=== PATIENT | male | born 1975 | race Caucasian/White ===

== ENCOUNTER 2023-02-16 08:36 | Outpatient (RCR) | payer BC, SELFPAY ==
[2023-02-16 08:57] LABS: Basophils Absolute Auto 0.02 K/uL (0.00-0.30); Basophils Percent Auto 0.3 % (0.0-3.0); Eosinophils Absolute Auto 0.26 K/uL (0.00-0.50); Eosinophils Percent Auto 4.2 % (0.0-7.0); Hematocrit 43.8 % (37.0-53.0); Lymphocytes Absolute Auto 1.42 K/uL (0.90-2.90); Lymphocytes Percent Auto 22.8 % (20-44); Mean Corpuscular HGB Conc 34 gm/dL (32-36); Mean Corpuscular Hemoglobin 31 pg (26-34); Mean Corpuscular Volume 90 fL (80-100); Monocytes Percent Auto 8.2 % (0.0-11.0); Neutrophils Absolute Auto 4.02 K/uL (1.7-7.0); Neutrophils Percent Auto 64.5 % (42.0-72.0); Platelet Count* 210 K/uL (140-440); RDW Coefficient of Variation % 12.3 % (11.5-15.5); Red Blood Count 4.87 m/uL (4.30-5.90); White Blood Count* 6.23 K/uL (4.50-11.00)
[2023-02-16 09:16] LABS: Albumin* 4.3 g/dL (3.3-5.0)
[2023-02-16 09:17] LABS: Chloride* 104 mmol/L (96-114); Potassium* 3.6 mmol/L (3.6-5.1); Slide Review Reflex No; Sodium* 137 mmol/L (135-149)
[2023-02-16 09:19] LABS: Anion Gap 7 mEq/L (7-15); Aspartate Amino Transferase* 66 U/L (12-35); Bilirubin Total* 0.7 mg/dL (0.1-1.5); Carbon Dioxide* 26 mmol/L (20-32); Creatinine* 0.9 mg/dL (0.5-1.5); Estimated Glomerular Filt Rate 107 ml/min
[2023-02-16 09:20] LABS: Alanine Aminotransferase* 91 U/L (4-50); Alkaline Phosphatase* 59 U/L (40-150); Blood Urea Nitrogen* 17 mg/dL (5-24); Glucose* 166 mg/dL (60-115); Total Protein* 7.3 g/dL (6.0-8.3)
== END 2023-08-15 23:59 | disposition home or self-care (01) ==
LOC: CCIC 08:36
PROVIDERS: PCP Family Medicine; Referring Provider Family Medicine; Visit Provider Clinical Nurse Specialist
DX: C86.3 Subcutaneous panniculitis-like T-cell lymphoma (principal)
CPT/HCPCS: 36415; 80053; 85025

== ENCOUNTER 2023-03-21 14:09 | Outpatient (CLI) | payer BC, SELFPAY | END 2023-03-21 14:10 | disposition home or self-care (01) | PROVIDERS: PCP Family Medicine; Visit Provider Internal Medicine | DX: R79.89 Other specified abnormal findings of blood chemistry (principal) | CPT/HCPCS: 80053; 80061; 82306 ==

== ENCOUNTER 2025-01-07 11:27 | Outpatient (CLI) | payer BC, SELFPAY ==
--- NOTE | 2025-01-13 12:18 | W.PM.SLEEP ---
Sleep Study Details Details Interpreting Provider: Vicky Date of Sleep Study: 01/07/25 Sleep Study Details: STUDY TYPE:? home unattended ? BMI:? 27.89 ORDERING PROVIDER:? Vicky INDICATION:? concern for sleep apnea ? SLEEP SUMMARY:? 405 minutes monitored RESPIRATORY SUMMARY:? AHI per rule 1A 9.5, per CMS guideline 4.1 Low oxygen 90 Snoring 100% PERIODIC LIMB MOVEMENTS OF SLEEP:? not recorded CARDIAC:? range 54-103, mean 64.6 beats per minute IMPRESSION:? mild obstructive sleep apnea RECOMMENDATION: treatment options include CPAP, dental appliance and/or airway expansion surgery.
== END 2025-01-07 11:28 | disposition home or self-care (01) ==
LOC: SLEEP 11:28
PROVIDERS: PCP Family Medicine; Visit Provider Otolaryngology
DX: G47.33 Obstructive sleep apnea (adult) (pediatric) (principal)
CPT/HCPCS: 95806

== ENCOUNTER 2025-03-11 14:29 | Outpatient (CLI) | payer BC, SELFPAY | END 2025-03-11 14:30 | disposition home or self-care (01) | PROVIDERS: PCP Family Medicine; Visit Provider Family Medicine | DX: Z01.818 Encounter for other preprocedural examination (principal); R79.89 Other specified abnormal findings of blood chemistry | CPT/HCPCS: 80048; 80076 ==

== ENCOUNTER 2025-03-27 09:27 | Day surgery (SDC) | payer BC, SELFPAY ==
[2025-03-27] VITALS (15 sets, daily range): BP systolic 115–154; BP diastolic 77–94; PULSE 58–83; RESP 16–20; TEMP 36.1–36.7; O2SAT 95–99; BMI 28.1
[2025-03-27] MEDS: OXYMETAZOLINE 0.05% NASAL SPRAY 2 SPRAY NOSTRIL-B (09:56)
[2025-03-27] MEDS: SODIUM CHLORIDE 0.9 % (FLUSH) 10 ML SYRINGE IVF (10:11)
[2025-03-27] MEDS: LACTATED RINGERS 1000 ML 1,000 ML 100 ML IV (10:11)
[2025-03-27] MEDS: MUPIROCIN 1 GM PACKET 1 APPLIC TOPICAL (11:22)
[2025-03-27] MEDS: BUPIVACAINE 0.5%/EPINEPHRINE 0.9 MG (30.9 ML) INJECTION (11:25)
[2025-03-27] MEDS: AYR SALINE NASAL GEL 1 APPLIC NOSTRIL-B (11:28)
--- NOTE | 2025-03-27 11:58 | P.ENTPROC_ITS ---
Procedure Note Date of procedure: 03/27/25 Procedure: Preop diagnosis history of lymphoma, abnormal appearance left tonsil superior pole, deviated septum, nasal obstruction, left middle and bilateral inferior turbinate hypertrophy Postop same Procedure nasal septoplasty, submucous partial resection inferior turbinates bilateral, partial resection left middle turbinate, left tonsil biopsy Under general trach anesthesia patient was prepped and draped usual fashion. A McIvor mouth gag was inserted the tongue retracted forward. There is an exophytic portion of his left tonsil I went about 5 mm deep to that with a needlepoint cautery and resected this and sent for pathology. Bleeding was controlled with cautery. After regarding gloving attention was turned the nose. The nose was decongested and and then injected. A right hemitransfixion incision was made. Bilateral anterior and posterior tunnels were created. A vertical incision was made through the cartilage anterior to the bone in the posterior bony deflection was resected. There is a left premaxillary wing deformity that was infractured this allowed the septum to return to midline. Two pieces of bone were trimmed returns intraseptal space the hemitransfixion closed with 2 fast-absorbing Vicryl 4-0. A stab incision was made in the anterior of the right inferior turbinate a tunnel created with a Kimble dissector. The blank bone was outfractured a conservative anterior submucous resection performed. The Coblation Wand was used for hemostasis and to cauterize intramurally along the inferior 10%. This was repeated on the left side in identical fashion. The left middle turbinate was medialized and then crushed with the [place] Tract forceps. Silastic stents were secured with 3-0 nylon and Merocel packing placed. The patient procedure well was taken recovery in satisfactory condition. Note that there were 2 Merocel packs on the left and 1 on the right. There is a small anterior pack left and then a longer pack on the left as well and a single long pack on the right. Blood loss 30 mL Surgeon: Clifton Perry MD
--- NOTE | 2025-03-27 12:07 | P.ANES_ITS ---
Anesthesia Charges Start Date/Time Anesthesia Start Date: 03/27/25 Anesthesia Start Time: 11:04 Stop Date/Time Anesthesia Stop Date: 03/27/25 Anesthesia Stop Time: 12:01 Coding CPT Codes CPT Codes: ANESTH NOSE/SINUS SURGERY - 63257 ([id number]) P2 - PATIENT W/MILD SYST DISEASE, QK - MANUFACTURER AGENT 2-4 CNCRNT ANES PROC, QX - HAND EXPANSION ENVELOPE MAKER SVC W/ MD MED DIRECTION
--- NOTE | 2025-03-27 12:07 | SUR.PHASEI ---
Pt denies any pain nasal dressing dry v.s.s
--- NOTE | 2025-03-27 12:07 | W.ANESCHARGE ---
Anesthesia Charges Start Date/Time Anesthesia Start Date: 03/27/25 Anesthesia Start Time: 11:04 Stop Date/Time Anesthesia Stop Date: 03/27/25 Anesthesia Stop Time: 12:01 Coding CPT Codes CPT Codes: ANESTH NOSE/SINUS SURGERY - 91825 ([id number]) P2 - PATIENT W/MILD SYST DISEASE, QK - AUTO PAINTER 2-4 CNCRNT ANES PROC, QX - FOOD TRADES ASSISTANTS SVC W/ MD MED DIRECTION
--- NOTE | 2025-03-27 12:09 | P.ANES_ITS ---
Anesthesia Charges Start Date/Time Anesthesia Start Date: 03/27/25 Anesthesia Start Time: 11:04 Stop Date/Time Anesthesia Stop Date: 03/27/25 Anesthesia Stop Time: 12:01 Coding CPT Codes CPT Codes: ANESTH NOSE/SINUS SURGERY - 57226 ([id number]) QK - FRUIT OR NUT FARMWORKER 2-4 CNCRNT ANES PROC, QX - LEGAL SUPPORT SPECIALIST SVC W/ MD MED DIRECTION, P2 - PATIENT W/MILD SYST DISEASE
--- NOTE | 2025-03-27 12:09 | W.ANESCHARGE ---
Anesthesia Charges Start Date/Time Anesthesia Start Date: 03/27/25 Anesthesia Start Time: 11:04 Stop Date/Time Anesthesia Stop Date: 03/27/25 Anesthesia Stop Time: 12:01 Coding CPT Codes CPT Codes: ANESTH NOSE/SINUS SURGERY - 68082 ([id number]) QK - WATER OPERATOR 2-4 CNCRNT ANES PROC, QX - STEWARDESS SUPERVISOR SVC W/ MD MED DIRECTION, P2 - PATIENT W/MILD SYST DISEASE
[2025-03-27] MEDS: ACETAMINOPHEN 325 MG TABLET 650 MG PO (12:45)
[2025-03-27] MEDS: IBUPROFEN 400 MG TABLET PO (12:45)
== END 2025-03-27 14:01 | disposition home or self-care (01) ==
LOC: OR 09:28
PROVIDERS: PCP Family Medicine; Visit Provider Otolaryngology
PROC: (CPT 30520; principal; 2025-03-27 10:45)
PROC: (CPT 42800; 2025-03-27 10:45)
DX: J34.2 Deviated nasal septum (principal); J34.3 Hypertrophy of nasal turbinates; J34.89 Other specified disorders of nose and nasal sinuses; J35.1 Hypertrophy of tonsils; Z85.72 Personal history of non-Hodgkin lymphomas
CPT/HCPCS: 42800; 30520; 30140; 30999; 00160; A9270; J0330; J1100; J2250; J2405; J2710; J3010; J3490; J7120